=== PATIENT | female | born 1940 | race Caucasian/White ===

== ENCOUNTER 2021-10-01 18:12 | Emergency (ER) | payer MEDICARE, BC ==
[2021-10-01] MEDS ORDERED: Ondansetron 4 MG/2 ML SDV IVPUSH ONE (18:37)
[2021-10-01 19:08] LABS: PTT,PARTIAL THROMBOPLSTIN TIME 21.9 SEC (20.5-30.9)
[2021-10-01 19:10] LABS: ANION GAP 14.5 mmol/L (5-15); CHLORIDE,CL 105 mmol/L (98-107); ESTIMATED GFR 50 mL/min (>=60); SODIUM,NA 142 mmol/L (136-145)
[2021-10-01] MEDS ORDERED: Metoclopramide 10 MG/2 ML SDV IVPUSH ONE (19:33)
[2021-10-02] MEDS ORDERED: Metoclopramide 10 MG/2 ML SDV IVPUSH ONE (00:55)
== END 2021-10-01 20:25 | disposition short-term general hospital (02) ==
LOC: VM.ED 18:12
DX: S72.011A Unspecified intracapsular fracture of right femur, initial encounter for closed fracture (principal); W01.0XXA Fall on same level from slipping, tripping and stumbling without subsequent striking against object, initial encounter
CPT/HCPCS: 36415; 80053; 85025; 85610; 85730; 96374; 96375; 96376; 99284; 99285-25; J2405; J2765

== ENCOUNTER 2024-01-29 14:32 | Inpatient (IN) | payer MEDICARE, BC ==
[2024-01-29] MEDS: Sodium Chloride 0.9% 1,000 ML IV ONE (15:30)
[2024-01-29 16:00] LABS: HEMATOCRIT 25.7 % (33.0-47.0); HEMOGLOBIN 8.3 g/dL (12.0-16.0); MEAN CORPUSCULAR HEMOGLOBIN 27.9 pg (26.0-32.0); MEAN CORPUSCULAR HGB CONC 32.3 g/dL (32.0-36.0); MEAN CORPUSCULAR VOLUME 86.5 fL (78.0-93.0); PLATELET COUNT,PLT 224 x10^3/uL (130-400); RED BLOOD CELL COUNT 2.97 x10^6/uL (4.00-5.50)
[2024-01-29 16:13] LABS: CALCIUM 7.8 mg/dL (8.5-10.1); EST CRCL DRUG DOSING (CG) 11.08 mL/min
[2024-01-29 16:17] LABS: ANISOCYTOSIS 1+ SLIGHT; BAND PERCENT MAN 2 % (0-6); LYMPHOCYTES ABSOLUTE MAN 1.1 x10^3/uL (1.0-4.8); LYMPHOCYTES PERCENT MAN 5 % (25-50); MONOCYTES ABSOLUTE MAN 0.2 x10^3/uL (0.0-0.8); MONOCYTES PERCENT MAN 1 % (2-11); NEUTROPHILS ABSOLUTE MAN 20.7 x10^3/uL (1.8-7.7); SEG NEUTROPHILS PERCENT MAN 92 % (50-80)
[2024-01-29 16:18] LABS: BURR CELLS 1+ SLIGHT; PLATELET COUNT ESTIMATE ADEQUATE; POIKILOCYTOSIS 1+ SLIGHT
[2024-01-29 16:29] LABS: APPEARANCE,URINE TURBID (CLEAR); BILIRUBIN,URINE NEGATIVE (NEGATIVE); COLOR,URINE YELLOW (YELLOW); GLUCOSE,URINE NEGATIVE (NEGATIVE); KETONES,URINE NEGATIVE (NEGATIVE); LEUKOCYTE ESTERASE,URINE LARGE (NEGATIVE); NITRITE,URINE NEGATIVE (NEGATIVE); OCCULT BLOOD,URINE MODERATE (NEGATIVE); PH,URINE 5.5 (5.0-8.0); PROTEIN,URINE 30 mg/dL (NEGATIVE); UROBILINOGEN,URINE 0.2 EU/dL (0.2)
[2024-01-29 16:35] LABS: BACTERIA,URINE MANY /HPF (NOT SEEN); MUCUS,URINE FEW /LPF (NOT SEEN); RBC,URINE 30-40 /HPF (NOT SEEN); SQUAMOUS EPITHELIAL CELLS,UR FEW /HPF (NOT SEEN); WBC,URINE >100 /HPF (NOT SEEN)
[2024-01-29 16:40] LABS: LACTIC ACID 1.9 mmol/L (0.4-2.0)
[2024-01-29] MEDS: cefTRIAXone 1 GM Vial IVPUSH ONE (17:05)
[2024-01-29] MEDS ORDERED: Ondansetron 4 MG Tab.DIS PO PRN (17:09)
[2024-01-29] MEDS: Sodium Chloride 0.9% 1,000 ML IV SCH (18:13)
[2024-01-29] MEDS: Heparin Sodium 5,000 Units/ML Vial SUBCUT SCH (18:14)
[2024-01-30 07:03] LABS: HEMOGLOBIN 7.2 g/dL (12.0-16.0); IMMATURE GRAN ABSOLUTE AUTO 0.05 x10^3/uL (0.00-0.07); LYMPHOCYTES ABSOLUTE AUTO 1.2 x10^3/uL (1.0-4.8); LYMPHOCYTES PERCENT AUTO 7.1 % (25.0-50.0); MEAN CORPUSCULAR HEMOGLOBIN 27.4 pg (26.0-32.0); MEAN CORPUSCULAR HGB CONC 31.3 g/dL (32.0-36.0); MEAN CORPUSCULAR VOLUME 87.5 fL (78.0-93.0); MONOCYTES ABSOLUTE AUTO 0.1 x10^3/uL (0.0-0.8); MONOCYTES PERCENT AUTO 0.3 % (2.0-11.0); NEUTROPHILS ABSOLUTE AUTO 16.2 x10^3/uL (1.8-7.7); NEUTROPHILS PERCENT AUTO 92.3 % (50.0-80.0); PLATELET COUNT,PLT 190 x10^3/uL (130-400); RED BLOOD CELL COUNT 2.63 x10^6/uL (4.00-5.50)
[2024-01-30 07:31] LABS: A/G RATIO 0.3; ALBUMIN 1.1 g/dL (3.4-5.0); BILIRUBIN TOTAL 0.3 mg/dL (0.2-1.0); CALCIUM 7.2 mg/dL (8.5-10.1); CREATININE 1.7 mg/dL (0.55-1.02); EST CRCL DRUG DOSING (CG) 19.75 mL/min; POTASSIUM,K 4.4 mmol/L (3.5-5.1); PROTEIN TOTAL,TP 4.8 g/dL (6.4-8.2)
[2024-01-30 07:34] LABS: ANION GAP 16.4 mmol/L (5-15)
[2024-01-30 07:35] LABS: WHITE BLOOD CELL COUNT,WBC 17.5 x10^3/uL (4.0-10.0)
[2024-01-30] MEDS ORDERED: Sodium Chloride 0.9% 1,000 ML IV SCH (09:00)
[2024-01-30] MEDS: cefTRIAXone 1 GM Vial IVPUSH SCH (10:00)
[2024-01-30] MEDS: predniSONE 5 MG Tab PO SCH (10:08)
[2024-01-30] MEDS: Triamcinolone Acetonide 0.1% Crm 15 GM Tube TOP SCH (10:12)
[2024-01-31 06:59] LABS: EOSINOPHILS PERCENT AUTO 0.2 % (0.0-4.0); HEMATOCRIT 22.6 % (33.0-47.0); HEMOGLOBIN 7.2 g/dL (12.0-16.0); IMMATURE GRAN ABSOLUTE AUTO 0.04 x10^3/uL (0.00-0.07); LYMPHOCYTES ABSOLUTE AUTO 1.8 x10^3/uL (1.0-4.8); LYMPHOCYTES PERCENT AUTO 19.5 % (25.0-50.0); MEAN CORPUSCULAR HEMOGLOBIN 28.1 pg (26.0-32.0); MEAN CORPUSCULAR HGB CONC 31.9 g/dL (32.0-36.0); MEAN CORPUSCULAR VOLUME 88.3 fL (78.0-93.0); MONOCYTES PERCENT AUTO 0.4 % (2.0-11.0); NEUTROPHILS ABSOLUTE AUTO 7.3 x10^3/uL (1.8-7.7); NEUTROPHILS PERCENT AUTO 79.5 % (50.0-80.0); PLATELET COUNT,PLT 160 x10^3/uL (130-400); RED BLOOD CELL COUNT 2.56 x10^6/uL (4.00-5.50); WHITE BLOOD CELL COUNT,WBC 9.2 x10^3/uL (4.0-10.0)
[2024-01-31 07:15] LABS: A/G RATIO 0.32; ALBUMIN 1.2 g/dL (3.4-5.0); BILIRUBIN TOTAL 0.2 mg/dL (0.2-1.0); CALCIUM 7.4 mg/dL (8.5-10.1); CREATININE 1.3 mg/dL (0.55-1.02); EST CRCL DRUG DOSING (CG) 26.16 mL/min; POTASSIUM,K 4.3 mmol/L (3.5-5.1); PROTEIN TOTAL,TP 4.9 g/dL (6.4-8.2)
[2024-01-31 07:16] LABS: ANION GAP 12.3 mmol/L (5-15)
[2024-01-31] MEDS: Heparin Sodium 5,000 Units/ML Vial SUBCUT SCH (09:09)
[2024-01-31] MEDS: Sodium Chloride 0.9% 10 ML Syringe IV PRN (09:20)
[2024-01-31] MEDS: Cholecalciferol (Vitamin D3) 25 MCG Tab PO SCH (10:00)
[2024-02-01 07:26] LABS: HEMATOCRIT 21.3 % (33.0-47.0); MEAN CORPUSCULAR HEMOGLOBIN 27.6 pg (26.0-32.0); MEAN CORPUSCULAR HGB CONC 31.5 g/dL (32.0-36.0); MEAN CORPUSCULAR VOLUME 87.7 fL (78.0-93.0); RED BLOOD CELL COUNT 2.43 x10^6/uL (4.00-5.50); WHITE BLOOD CELL COUNT,WBC 4.5 x10^3/uL (4.0-10.0)
[2024-02-01 07:33] LABS: HEMOGLOBIN 6.7 g/dL (12.0-16.0)
[2024-02-01 08:00] LABS: A/G RATIO 0.35; ALBUMIN 1.2 g/dL (3.4-5.0); ANION GAP 11.6 mmol/L (5-15); BILIRUBIN TOTAL 0.3 mg/dL (0.2-1.0); CALCIUM 7.4 mg/dL (8.5-10.1); EST CRCL DRUG DOSING (CG) 33.73 mL/min; POTASSIUM,K 4.6 mmol/L (3.5-5.1); PROTEIN TOTAL,TP 4.6 g/dL (6.4-8.2)
[2024-02-01 08:29] LABS: PLATELET COUNT,PLT 130 x10^3/uL (130-400)
[2024-02-01 08:32] LABS: ANISOCYTOSIS 2+ MODERATE; HYPOCHROMASIA 2+ MODERATE; LYMPHOCYTES ABSOLUTE MAN 1.4 x10^3/uL (1.0-4.8); LYMPHOCYTES PERCENT MAN 32 % (25-50); MONOCYTES PERCENT MAN 1 % (2-11); PLATELET COUNT ESTIMATE ADEQUATE; SEG NEUTROPHILS PERCENT MAN 67 % (50-80)
[2024-02-01] MEDS: Iopamidol 612 MG/ML 100 ML Bottle IVPUSH ONE (10:26)
[2024-02-01] MEDS: Ampicillin/Sulbactam Na 3 GM in Sodium Chloride 0.9% 100 ML IV SCH ×2 (10:37→18:07)
[2024-02-01] MEDS: Piperacillin/Tazobactam 4.5 GM in Sodium Chloride 0.9% 100 ML IV SCH (10:50)
[2024-02-02 10:34] LABS: EOSINOPHILS PERCENT AUTO 0.1 % (0.0-4.0); HEMATOCRIT 27.7 % (33.0-47.0); HEMOGLOBIN 8.8 g/dL (12.0-16.0); MEAN CORPUSCULAR HEMOGLOBIN 28.4 pg (26.0-32.0); MEAN CORPUSCULAR HGB CONC 31.8 g/dL (32.0-36.0); MEAN CORPUSCULAR VOLUME 89.4 fL (78.0-93.0); MONOCYTES ABSOLUTE AUTO 0.2 x10^3/uL (0.0-0.8); MONOCYTES PERCENT AUTO 1.3 % (2.0-11.0); NEUTROPHILS ABSOLUTE AUTO 10.1 x10^3/uL (1.8-7.7); NEUTROPHILS PERCENT AUTO 88.7 % (50.0-80.0); PLATELET COUNT,PLT 91 x10^3/uL (130-400); WHITE BLOOD CELL COUNT,WBC 11.4 x10^3/uL (4.0-10.0)
[2024-02-02 10:51] LABS: CALCIUM 7.5 mg/dL (8.5-10.1); CREATININE 1.1 mg/dL (0.55-1.02); EST CRCL DRUG DOSING (CG) 31.81 mL/min; POTASSIUM,K 4.1 mmol/L (3.5-5.1)
[2024-02-02 11:07] LABS: ANION GAP 13.1 mmol/L (5-15)
[2024-02-02] MEDS ORDERED: ALPRAZolam 0.25 MG Tab PO PRN (12:32)
[2024-02-02] MEDS: Acetaminophen 325 MG Tab PO PRN (14:07)
[2024-02-02] MEDS: Sodium Chloride 0.9% 500 ML IV SCH (14:22)
[2024-02-02] MEDS: Sodium Chloride 0.9% 500 ML IV ONE (15:30)
== END 2024-02-02 15:45 | disposition short-term general hospital (02) | DRG 871 ==
LOC: VM.ED 14:32 → VM.MS 16:42
PROVIDERS: ADMIT Family Medicine; ATTEND Family Medicine
PROC: 3E03329 Introduction of Other Anti-infective into Peripheral Vein, Percutaneous Approach (ICD-10-PCS; 2024-01-29)
PROC: 30233N1 Transfusion of Nonautologous Red Blood Cells into Peripheral Vein, Percutaneous Approach (ICD-10-PCS; principal; 2024-02-01)
DX: R53.1 Weakness (principal); A41.51 Sepsis due to Escherichia coli [E. coli]; D72.829 Elevated white blood cell count, unspecified; E43 Unspecified severe protein-calorie malnutrition; R57.1 Hypovolemic shock; N17.9 Acute kidney failure, unspecified; N39.0 Urinary tract infection, site not specified; C91.00 Acute lymphoblastic leukemia not having achieved remission; D84.9 Immunodeficiency, unspecified; K61.1 Rectal abscess; Z68.1 Body mass index [BMI] 19.9 or less, adult; R65.20 Severe sepsis without septic shock; I10 Essential (primary) hypertension; E78.5 Hyperlipidemia, unspecified; D50.9 Iron deficiency anemia, unspecified; E86.0 Dehydration; E87.5 Hyperkalemia; I95.9 Hypotension, unspecified; K52.9 Noninfective gastroenteritis and colitis, unspecified
CPT/HCPCS: 36415; 80048; 81001; 83605; 85025; 87086; 87088; 87186; 93005; 93010; 96360; 99284; 99285; J7030; 36430; 51702; 71045; 74177; 80053; 84145; 86140; 86850; 86900; 86901; 86920; 86922; 87040; 87070; 87077; 87230; 87493; 97110-GP; 97116-GP; 97162-GP; 97165-GO; 97535-GO; A9270-GY; J0295; J0696; J1644; J3490; J7512; P9016; Q9967

== ENCOUNTER 2024-02-29 11:13 | Inpatient (IN) | payer MEDICARE, BC ==
[2024-02-29] MEDS ORDERED: oxyCODONE 5 MG Tab PO PRN ×2 (15:28)
[2024-02-29] MEDS: Apixaban 2.5 MG Tab PO SCH (21:09)
[2024-02-29] MEDS: Amoxicillin/Clavulanate K 875-125 MG Tab PO SCH (21:09)
[2024-02-29] MEDS: Miconazole 2% Top Powder 45 GM Container TOP SCH (21:10)
[2024-02-29] MEDS: atorvaSTATin 40 MG Tab PO SCH (21:10)
[2024-02-29] MEDS: Triamcinolone Acetonide 0.1% Crm 15 GM Tube TOP SCH (21:12)
[2024-03-01] MEDS: Omeprazole 20 MG Cap.CR PO SCH (06:03)
[2024-03-01 07:57] LABS: HEMATOCRIT 29.4 % (33.0-47.0); HEMOGLOBIN 9.3 g/dL (12.0-16.0); MEAN CORPUSCULAR HEMOGLOBIN 29.6 pg (26.0-32.0); MEAN CORPUSCULAR HGB CONC 31.6 g/dL (32.0-36.0); MEAN CORPUSCULAR VOLUME 93.6 fL (78.0-93.0); RED BLOOD CELL COUNT 3.14 x10^6/uL (4.00-5.50); WHITE BLOOD CELL COUNT,WBC 8.3 x10^3/uL (4.0-10.0)
[2024-03-01 08:11] LABS: A/G RATIO 0.34; ALBUMIN 1.1 g/dL (3.4-5.0); BILIRUBIN TOTAL 0.2 mg/dL (0.2-1.0); CREATININE 0.6 mg/dL (0.55-1.02); EST CRCL DRUG DOSING (CG) 64.2 mL/min; POTASSIUM,K 4.2 mmol/L (3.5-5.1); PROTEIN TOTAL,TP 4.3 g/dL (6.4-8.2)
[2024-03-01 08:14] LABS: ANION GAP 5.2 mmol/L (5-15)
[2024-03-01] MEDS: Cholecalciferol (Vitamin D3) 25 MCG Tab PO SCH (08:40)
[2024-03-01] MEDS: predniSONE 5 MG Tab PO SCH (08:40)
[2024-03-03] MEDS: Apixaban 2.5 MG Tab PO SCH (21:15)
[2024-03-04] MEDS ORDERED: Aloe Vera/Sodium Chloride Gel 14.1 GM Tube NAS PRN (08:26)
[2024-03-04] MEDS: Apixaban 5 MG Tab PO SCH (21:11)
[2024-03-07 07:00] LABS: BASOPHILS ABSOLUTE AUTO 0.1 x10^3/uL (0.0-0.2); BASOPHILS PERCENT AUTO 0.6 % (0.2-1.2); EOSINOPHILS ABSOLUTE AUTO 0.1 x10^3/uL (0.0-0.5); EOSINOPHILS PERCENT AUTO 1.8 % (0.0-4.0); HEMATOCRIT 31.1 % (33.0-47.0); HEMOGLOBIN 9.9 g/dL (12.0-16.0); IMMATURE GRAN ABSOLUTE AUTO 0.06 x10^3/uL (0.00-0.07); LYMPHOCYTES ABSOLUTE AUTO 3.6 x10^3/uL (1.0-4.8); LYMPHOCYTES PERCENT AUTO 46.6 % (25.0-50.0); MEAN CORPUSCULAR HEMOGLOBIN 30.4 pg (26.0-32.0); MEAN CORPUSCULAR HGB CONC 31.8 g/dL (32.0-36.0); MEAN CORPUSCULAR VOLUME 95.4 fL (78.0-93.0); MONOCYTES ABSOLUTE AUTO 0.5 x10^3/uL (0.0-0.8); MONOCYTES PERCENT AUTO 6.7 % (2.0-11.0); NEUTROPHILS ABSOLUTE AUTO 3.4 x10^3/uL (1.8-7.7); NEUTROPHILS PERCENT AUTO 43.5 % (50.0-80.0); PLATELET COUNT,PLT 228 x10^3/uL (130-400); RED BLOOD CELL COUNT 3.26 x10^6/uL (4.00-5.50)
[2024-03-07 07:09] LABS: WHITE BLOOD CELL COUNT,WBC 7.8 x10^3/uL (4.0-10.0)
[2024-03-07 07:23] LABS: A/G RATIO 0.39; ALBUMIN 1.6 g/dL (3.4-5.0); BILIRUBIN TOTAL 0.3 mg/dL (0.2-1.0); CALCIUM 8.5 mg/dL (8.5-10.1); CREATININE 0.6 mg/dL (0.55-1.02); EST CRCL DRUG DOSING (CG) 58.04 mL/min; POTASSIUM,K 4.8 mmol/L (3.5-5.1); PROTEIN TOTAL,TP 5.7 g/dL (6.4-8.2)
[2024-03-07 07:24] LABS: ANION GAP 6.8 mmol/L (5-15)
[2024-03-08] MEDS: Ondansetron 4 MG Tab.DIS PO PRN (12:48)
[2024-03-12 06:58] LABS: BASOPHILS PERCENT AUTO 0.5 % (0.2-1.2); EOSINOPHILS ABSOLUTE AUTO 0.1 x10^3/uL (0.0-0.5); EOSINOPHILS PERCENT AUTO 1.7 % (0.0-4.0); HEMATOCRIT 30.1 % (33.0-47.0); HEMOGLOBIN 9.6 g/dL (12.0-16.0); IMMATURE GRAN ABSOLUTE AUTO 0.07 x10^3/uL (0.00-0.07); LYMPHOCYTES ABSOLUTE AUTO 3.9 x10^3/uL (1.0-4.8); LYMPHOCYTES PERCENT AUTO 51.7 % (25.0-50.0); MEAN CORPUSCULAR HEMOGLOBIN 30.6 pg (26.0-32.0); MEAN CORPUSCULAR HGB CONC 31.9 g/dL (32.0-36.0); MEAN CORPUSCULAR VOLUME 95.9 fL (78.0-93.0); MONOCYTES ABSOLUTE AUTO 0.5 x10^3/uL (0.0-0.8); MONOCYTES PERCENT AUTO 6.8 % (2.0-11.0); NEUTROPHILS ABSOLUTE AUTO 2.9 x10^3/uL (1.8-7.7); NEUTROPHILS PERCENT AUTO 38.4 % (50.0-80.0); RED BLOOD CELL COUNT 3.14 x10^6/uL (4.00-5.50); WHITE BLOOD CELL COUNT,WBC 7.5 x10^3/uL (4.0-10.0)
[2024-03-12 07:17] LABS: A/G RATIO 0.43; ALBUMIN 1.7 g/dL (3.4-5.0); BILIRUBIN TOTAL 0.3 mg/dL (0.2-1.0); CALCIUM 8.3 mg/dL (8.5-10.1); CREATININE 0.7 mg/dL (0.55-1.02); EST CRCL DRUG DOSING (CG) 47.55 mL/min; POTASSIUM,K 4.5 mmol/L (3.5-5.1); PROTEIN TOTAL,TP 5.7 g/dL (6.4-8.2)
[2024-03-12 07:19] LABS: ANION GAP 6.5 mmol/L (5-15)
[2024-03-12 07:25] LABS: PLATELET COUNT,PLT 264 x10^3/uL (130-400)
[2024-03-17 07:00] LABS: BASOPHILS PERCENT AUTO 0.4 % (0.2-1.2); EOSINOPHILS ABSOLUTE AUTO 0.2 x10^3/uL (0.0-0.5); EOSINOPHILS PERCENT AUTO 2.2 % (0.0-4.0); HEMATOCRIT 31.6 % (33.0-47.0); HEMOGLOBIN 10.2 g/dL (12.0-16.0); IMMATURE GRAN ABSOLUTE AUTO 0.09 x10^3/uL (0.00-0.07); LYMPHOCYTES ABSOLUTE AUTO 3.9 x10^3/uL (1.0-4.8); MEAN CORPUSCULAR HEMOGLOBIN 30.4 pg (26.0-32.0); MEAN CORPUSCULAR HGB CONC 32.3 g/dL (32.0-36.0); MONOCYTES ABSOLUTE AUTO 0.7 x10^3/uL (0.0-0.8); NEUTROPHILS ABSOLUTE AUTO 3.9 x10^3/uL (1.8-7.7); NEUTROPHILS PERCENT AUTO 44.4 % (50.0-80.0); PLATELET COUNT,PLT 215 x10^3/uL (130-400); RED BLOOD CELL COUNT 3.35 x10^6/uL (4.00-5.50); WHITE BLOOD CELL COUNT,WBC 8.9 x10^3/uL (4.0-10.0)
[2024-03-17 07:14] LABS: MEAN CORPUSCULAR VOLUME 94.3 fL (78.0-93.0)
[2024-03-17 07:20] LABS: A/G RATIO 0.47; ALBUMIN 1.8 g/dL (3.4-5.0); BILIRUBIN TOTAL 0.3 mg/dL (0.2-1.0); CALCIUM 8.5 mg/dL (8.5-10.1); CREATININE 0.6 mg/dL (0.55-1.02); EST CRCL DRUG DOSING (CG) 55.35 mL/min; POTASSIUM,K 4.1 mmol/L (3.5-5.1); PROTEIN TOTAL,TP 5.6 g/dL (6.4-8.2)
[2024-03-17 07:25] LABS: ANION GAP 9.1 mmol/L (5-15)
[2024-03-24 07:16] LABS: BASOPHILS PERCENT AUTO 0.4 % (0.2-1.2); EOSINOPHILS ABSOLUTE AUTO 0.2 x10^3/uL (0.0-0.5); EOSINOPHILS PERCENT AUTO 1.7 % (0.0-4.0); HEMATOCRIT 30.5 % (33.0-47.0); HEMOGLOBIN 9.9 g/dL (12.0-16.0); IMMATURE GRAN ABSOLUTE AUTO 0.07 x10^3/uL (0.00-0.07); LYMPHOCYTES ABSOLUTE AUTO 3.5 x10^3/uL (1.0-4.8); LYMPHOCYTES PERCENT AUTO 38.9 % (25.0-50.0); MEAN CORPUSCULAR HEMOGLOBIN 31.2 pg (26.0-32.0); MEAN CORPUSCULAR HGB CONC 32.5 g/dL (32.0-36.0); MEAN CORPUSCULAR VOLUME 96.2 fL (78.0-93.0); MONOCYTES ABSOLUTE AUTO 0.6 x10^3/uL (0.0-0.8); MONOCYTES PERCENT AUTO 6.6 % (2.0-11.0); NEUTROPHILS ABSOLUTE AUTO 4.7 x10^3/uL (1.8-7.7); NEUTROPHILS PERCENT AUTO 51.6 % (50.0-80.0); PLATELET COUNT,PLT 181 x10^3/uL (130-400); RED BLOOD CELL COUNT 3.17 x10^6/uL (4.00-5.50); WHITE BLOOD CELL COUNT,WBC 9.1 x10^3/uL (4.0-10.0)
[2024-03-24 07:32] LABS: A/G RATIO 0.46; ALBUMIN 1.7 g/dL (3.4-5.0); BILIRUBIN TOTAL 0.4 mg/dL (0.2-1.0); CALCIUM 8.3 mg/dL (8.5-10.1); CREATININE 0.7 mg/dL (0.55-1.02); EST CRCL DRUG DOSING (CG) 47.09 mL/min; POTASSIUM,K 4.3 mmol/L (3.5-5.1); PROTEIN TOTAL,TP 5.4 g/dL (6.4-8.2)
[2024-03-24 07:34] LABS: ANION GAP 9.3 mmol/L (5-15)
== END 2024-03-28 16:50 | disposition home health service (06) | DRG 948 ==
LOC: VM.MS 14:40
PROVIDERS: ADMIT Family Medicine; ATTEND Family Medicine
DX: R53.1 Weakness (principal); C20 Malignant neoplasm of rectum; C78.7 Secondary malignant neoplasm of liver and intrahepatic bile duct; C91.00 Acute lymphoblastic leukemia not having achieved remission; E46 Unspecified protein-calorie malnutrition; Z68.1 Body mass index [BMI] 19.9 or less, adult; I27.82 Chronic pulmonary embolism; K61.1 Rectal abscess; I82.593 Chronic embolism and thrombosis of other specified deep vein of lower extremity, bilateral; Z66 Do not resuscitate; Z51.5 Encounter for palliative care; I10 Essential (primary) hypertension; E78.00 Pure hypercholesterolemia, unspecified; Z96.649 Presence of unspecified artificial hip joint; D50.0 Iron deficiency anemia secondary to blood loss (chronic); I08.0 Rheumatic disorders of both mitral and aortic valves; R04.0 Epistaxis; R01.1 Cardiac murmur, unspecified; Q82.8 Other specified congenital malformations of skin; Z79.01 Long term (current) use of anticoagulants; Z79.899 Other long term (current) drug therapy; Z93.1 Gastrostomy status; Z87.81 Personal history of (healed) traumatic fracture; Z90.710 Acquired absence of both cervix and uterus; Z93.3 Colostomy status
CPT/HCPCS: 36415; 80053; 85025; 85027; 87070; 95851-GO; 97110-GP; 97116-GP; 97162-GP; 97165-GO; 97535-GO; A4320; A9270-GY; J7512

== ENCOUNTER 2024-07-10 14:43 | Emergency (ER) | payer MEDICARE, BC ==
[2024-07-10] MEDS: Acetaminophen 500 MG Tab PO ONE (15:04)
[2024-07-10] MEDS ORDERED: Sodium Chloride 0.9% 10 ML Syringe FLUSH PRN (15:11)
[2024-07-10 15:18] LABS: HEMATOCRIT 33.5 % (33.0-47.0); HEMOGLOBIN 10.6 g/dL (12.0-16.0); MEAN CORPUSCULAR HGB CONC 31.6 g/dL (32.0-36.0); MEAN CORPUSCULAR VOLUME 94.9 fL (78.0-93.0); PLATELET COUNT,PLT 264 x10^3/uL (130-400); RED BLOOD CELL COUNT 3.53 x10^6/uL (4.00-5.50)
[2024-07-10 15:20] LABS: WHITE BLOOD CELL COUNT,WBC 21.6 x10^3/uL (4.0-10.0)
[2024-07-10 15:26] LABS: APPEARANCE,URINE SLIGHTLY CLOUDY (CLEAR); BILIRUBIN,URINE NEGATIVE (NEGATIVE); COLOR,URINE YELLOW (YELLOW); GLUCOSE,URINE NEGATIVE (NEGATIVE); KETONES,URINE NEGATIVE (NEGATIVE); LEUKOCYTE ESTERASE,URINE SMALL (NEGATIVE); NITRITE,URINE NEGATIVE (NEGATIVE); OCCULT BLOOD,URINE MODERATE (NEGATIVE); PH,URINE 6.5 (5.0-8.0); PROTEIN,URINE 100 mg/dL (NEGATIVE); UROBILINOGEN,URINE 0.2 EU/dL (0.2)
[2024-07-10 15:27] LABS: EPITHELIAL CELLS,URINE FEW
[2024-07-10 15:28] LABS: PROTHROMBIN TIME 11.2 SEC (9.6-12.0); PTT,PARTIAL THROMBOPLSTIN TIME 26.5 SEC (23.5-33.2)
[2024-07-10 15:28] LABS: BACTERIA,URINE FEW /HPF (NOT SEEN)
[2024-07-10] MEDS: cefTRIAXone 1 GM Vial IVPUSH ONE (15:29)
[2024-07-10] MEDS: Lactated Ringers 1,000 ML IV ONE ×3 (15:29→18:21)
[2024-07-10 15:35] LABS: ANISOCYTOSIS 2+ MODERATE; BAND PERCENT MAN 5 % (0-6); LYMPHOCYTES ABSOLUTE MAN 2.2 x10^3/uL (1.0-4.8); LYMPHOCYTES PERCENT MAN 10 % (25-50); MONOCYTES ABSOLUTE MAN 1.1 x10^3/uL (0.0-0.8); MONOCYTES PERCENT MAN 5 % (2-11); NEUTROPHILS ABSOLUTE MAN 18.4 x10^3/uL (1.8-7.7); PLATELET COUNT ESTIMATE ADEQUATE; SEG NEUTROPHILS PERCENT MAN 80 % (50-80)
[2024-07-10 15:37] LABS: A/G RATIO 0.41; ALBUMIN 2.1 g/dL (3.4-5.0); ANION GAP 12.9 mmol/L (5-15); C-REACTIVE PROTEIN 13.81 mg/dL (<=0.50); CALCIUM 8.2 mg/dL (8.5-10.1); CREATININE 1.3 mg/dL (0.55-1.02); EST CRCL DRUG DOSING (CG) 27.56 mL/min; POTASSIUM,K 3.9 mmol/L (3.5-5.1); PROTEIN TOTAL,TP 7.2 g/dL (6.4-8.2)
[2024-07-10 15:38] LABS: LACTIC ACID 5.5 mmol/L (0.4-2.0)
[2024-07-10] MEDS: Azithromycin 500 MG in Sodium Chloride 0.9% 250 ML IV ONE (16:03)
[2024-07-10] MEDS: Norepinephrine Bit/D5W Premix 250 ML IV SCH (17:16)
[2024-07-10] MEDS: Iopamidol 612 MG/ML 100 ML Bottle IVPUSH ONE (18:08)
[2024-07-10] MEDS: metroNIDAZOLE/Normal Saline 500 MG in Premix Bag 1 BAG IV ONE (19:06)
[2024-07-10] MEDS: VANCOmycin 1 GM in Sodium Chloride 0.9% 250 ML IV ONE (19:06)
== END 2024-07-10 19:35 | disposition short-term general hospital (02) ==
LOC: VM.ED 14:43 → VM.MS 16:33 → UNDOADMIN 16:33
DX: A41.9 Sepsis, unspecified organism (principal); R65.21 Severe sepsis with septic shock; J18.9 Pneumonia, unspecified organism; N30.90 Cystitis, unspecified without hematuria; N73.9 Female pelvic inflammatory disease, unspecified; C78.7 Secondary malignant neoplasm of liver and intrahepatic bile duct; I10 Essential (primary) hypertension; E78.00 Pure hypercholesterolemia, unspecified; Z79.01 Long term (current) use of anticoagulants; Z79.899 Other long term (current) drug therapy
CPT/HCPCS: 36415; 71045; 74177; 80053; 81001; 83605; 83735; 84484; 85025; 85610; 85730; 86140; 87040; 87086; 87088; 87186; 87428; 93005; A9270; J0456; J0696; J1836; J7050; J7120; Q9967

== ENCOUNTER 2024-11-19 11:50 | Emergency (ER) | payer MEDICARE, BC ==
[2024-11-19 12:37] LABS: PLATELET COUNT,PLT 362 x10^3/uL (130-400); RED BLOOD CELL COUNT 3.90 x10^6/uL (4.00-5.50)
[2024-11-19 12:38] LABS: WHITE BLOOD CELL COUNT,WBC 30.7 x10^3/uL (4.0-10.0)
[2024-11-19 12:47] LABS: BAND PERCENT MAN 10 % (0-6); LYMPHOCYTES ABSOLUTE MAN 2.5 x10^3/uL (1.0-4.8); LYMPHOCYTES PERCENT MAN 8 % (25-50); MONOCYTES ABSOLUTE MAN 0.6 x10^3/uL (0.0-0.8); MONOCYTES PERCENT MAN 2 % (2-11); NEUTROPHILS ABSOLUTE MAN 27.6 x10^3/uL (1.8-7.7); PLATELET COUNT ESTIMATE ADEQUATE; SEG NEUTROPHILS PERCENT MAN 80 % (50-80)
[2024-11-19 12:52] LABS: A/G RATIO 0.38; ALANINE AMINOTRANSFERASE,ALT 110.0 U/L (14-59); ASPARTATE AMNIOTRANSFERASE,AST 73.0 U/L (15-37); BILIRUBIN TOTAL 0.9 mg/dL (0.2-1.0); BLOOD UREA NITROGEN,BUN 33.0 mg/dL (7-18); CARBON DIOXIDE,CO2 30.0 mmol/L (21-32); CHLORIDE,CL 90.0 mmol/L (98-107); CREATININE 1.0 mg/dL (0.55-1.02); EST CRCL DRUG DOSING (CG) 37.21 mL/min; ESTIMATED GFR 56.0 mL/min (>=60); GLUCOSE RANDOM 124.0 mg/dL (70-99); POTASSIUM,K 4.4 mmol/L (3.5-5.1); PROTEIN TOTAL,TP 6.9 g/dL (6.4-8.2); SODIUM,NA 133.0 mmol/L (136-145)
[2024-11-19 13:41] LABS: APPEARANCE,URINE SLIGHTLY CLOUDY (CLEAR); GLUCOSE,URINE NEGATIVE (NEGATIVE); OCCULT BLOOD,URINE MODERATE (NEGATIVE)
[2024-11-19 13:50] LABS: EPITHELIAL CELLS,URINE FEW
[2024-11-19] MEDS: Ondansetron 4 MG/2 ML SDV IVPUSH ONE (15:03)
== END 2024-11-19 15:35 | disposition short-term general hospital (02) ==
LOC: VM.ED 11:50 → SUPCPDRO 11:50 → VM.ED 15:35
DX: S22.32XA Fracture of one rib, left side, initial encounter for closed fracture (principal); I10 Essential (primary) hypertension; Z79.899 Other long term (current) drug therapy; W01.198A Fall on same level from slipping, tripping and stumbling with subsequent striking against other object, initial encounter
CPT/HCPCS: 36415; 72128; 80053; 81001; 83605; 83735; 85025; 87040; 87086; 87088; 87186; 93005; 93010; 96361; 96374; 96375; 99284; 99285-25; J0696; J1171; J2405; J7030